=== PATIENT | female | born 1950 | race Caucasian/White ===

== ENCOUNTER 2018-01-11 13:56 | Emergency (ER) | payer MEDICARE ==
[2018-01-11 14:05] VITALS: BP 234/173
--- NOTE | 2018-01-11 14:11 | ER Report ---
History and Physical Time Seen By MD: 13:55 HPI/ROS CHIEF COMPLAINT: Cardiopulmonary arrest HISTORY OF PRESENT ILLNESS: This is a 67 year old female. She was brought to the ER by EMS with CPR in progress. Started CPR about 1315 upon arrival. He had found her down at home, uncertain how long she had been down. He said that her lips and face were blue. It looked like she had vomited at home. He had taken her home earlier today because she was not feeling well. She was not feeling when when he called to check on her, so he was heading home to see how she was doing when he found her down. Last time seen was at about 1130. EMS arrived about 5 minutes after he started doing CPR. They had PEA and Asystole. One episode of a shockable rhythm. About 5 rounds of epinephrine on their care and transport. Arrival here without spontaneous respirations, ET tube in place. No response to tactile or verbal stimulation. CPR continuing with the Alex device. REVIEW OF SYSTEMS: unable to obtain Allergies: Coded Allergies: No Known Allergies (Verified Allergy, Mild, 02/08/08) Home Meds Reported Medications Multivitamins (Multivitamin) 1 Tab Tablet, 1 TAB PO DAILY 02/09/08 Acetaminophen (Tylenol) 325 Mg Tab, 650 MG PO Q4H 1 as needed 02/09/08 Alendronate Sodium (Fosamax) 70 Mg Tab, 70 MG PO FOS70, #0 0 Refills GIVE IN AM 30 MIN BEFORE FOOD/DRINK/MEDS-REMAIN UPRIGHT FOR 30 MIN AFTER. 02/09/08 Citalopram Hydrobromide (Celexa) 20 Mg Tab, 20 MG PO QDAY 02/09/08 Trazodone Hcl (Desyrel) 50 Mg Tab, 50 MG PO HS 02/09/08 Lisinopril (Prinivil) 5 Mg Tab, 5 MG PO QDAY, #0 0 Refills 02/09/08 Levothyroxine Sodium (Synthroid/Levothroid) 0.088 Mg Tab, 0.088 MG PO QDAY 02/09/08 Atenolol (Atenolol) 50 Mg Tablet, 100 MG PO QDAY 02/09/08 Reviewed Nurses Notes: Yes Constitutional Vital Sign - Last 24 Hours 01/11/18 01/11/18 01/11/18 01/11/18 13:57 13:59 14:01 14:04 Pulse 100 Resp 99 B/P (MAP) 166/94 (118) 228/169 (188) 224/142 (169) 231/191 (204) Pulse Ox 63 01/11/18 01/11/18 01/11/18 14:05 14:06 14:18 Resp 102 B/P (MAP) 234/173 (193) Pulse Ox 71 O2 Flow Rate 15.0 Physical Exam General: Comatose. Intubated with CPR in progress. Eyes: Pupils are fixed and dilated. No movement of eyes. ENT: ET tube in place, red blood in the tube. No blood with brief look into the mouth. TM and canals normal. Neck: Midline trachea. Respiratory: No spontaneous respirations. Poor end-tidal CO2 at this time. Bag- valve respirations easily. Cardiovascular: On initial pause, pulseless electrical activity. No signs of good perfusion even with CPR. Gastrointestinal: Non-distended. Skin: Very cool and cyanotic in extremities. Neuro: No spontaneous movements. No response to tactile or verbal stimulation. Musculoskeletal: No deformities noted. Medical Decision Making ED Course/Re-evaluation Clinical Indication for ER IV: IV Access ED Course CPR was continued through 3 cycles. Further Epinephrine boluses were given. On pauses of the Alex, continued to see pulseless electrical activity. No response to medicines. The patient's is at bedside during our treatment. I talked to him at intervals during our interventions and explained the process. With no improvement, and based on the total time of her being down , the decision to stop CPR was made and I communicated this with the patient's . Decision to Disposition Date: Jan 11, 2018 Decision to Disposition Time: 14:08 Depart Departure Latest Vital Signs Vital Signs Date Time Temp Pulse Resp B/P (MAP) Pulse Ox O2 Delivery O2 Flow Rate FiO2 01/11/18 14:18 15.0 01/11/18 14:06 102 71 01/11/18 14:05 234/173 (193) 01/11/18 14:01 100 Impression: Primary Impression: Cardiopulmonary arrest Condition: Disposition: Referrals: GERRI VALADEZ MD (PCP) LILLIAN JONES MD Jan 11, 2018 14:11
== END 2018-01-11 15:05 | disposition expired ==
LOC: ER 13:57
DX: I46.9 Cardiac arrest, cause unspecified (principal)
CPT/HCPCS: 92950; 99285; J0171

== ENCOUNTER → 2018-01-11 | Outpatient (CLI) | payer MEDICARE ==
[~2018-01-11] MED LIST: ACE325 PO; ALE70 PO; ATE50 PO; ATEN-1 PO; CIT20 PO; CITA-128 PO; CITALOPRAM PO; LEV88 PO; LIS5 PO; MULT-820 PO; TRAZ50 PO; [UNRECOGNIZED DRUG - OTHER] PO
== END ==
LOC: AMB 13:09
PROVIDERS: ATTEND Nurse Practitioner
DX: I46.9 Cardiac arrest, cause unspecified (principal)
CPT/HCPCS: A0425; A0433